=== PATIENT | female | born 1950 | race Caucasian/White ===

== ENCOUNTER → 2016-08-17 | Outpatient (CLI) | payer MEDICARE | END | disposition home or self-care (01) | LOC: GMAL 15:35 | PROVIDERS: ATTEND Family Medicine | DX: D51.3 Other dietary vitamin B12 deficiency anemia (principal); E55.9 Vitamin D deficiency, unspecified ==

== ENCOUNTER → 2017-02-12 | Outpatient (CLI) | payer MEDICARE | END | disposition home or self-care (01) | LOC: GMAL 10:49 | PROVIDERS: ATTEND Family Medicine | DX: E55.9 Vitamin D deficiency, unspecified (principal) ==

== ENCOUNTER → 2017-02-27 | Outpatient (CLI) | payer MEDICARE | END | disposition home or self-care (01) | LOC: GMAL 16:37 | PROVIDERS: ATTEND Family Medicine | DX: N30.00 Acute cystitis without hematuria (principal) ==

== ENCOUNTER → 2017-05-21 | Outpatient (CLI) | payer MEDICARE ==
--- NOTE | 2017-05-22 16:19 | MAM ---
EXAM DESCRIPTION: 3D Screening BILATERAL : Digital Mammography. CLINICAL HISTORY: 66 years Female SCREENING . No complaints. No family history breast cancer.. COMPARISON: 2-D digital bilateral screening studies on 03/28/2016 and 03/02/2015. Report from prior examination also reviewed. TECHNIQUE: Bilateral CC and MLO projection full-field images, 3-D tomosynthesis digital mammographic technique. Also bilateral synthesized CC/ MLO full-field images. CAD not utilized. FINDINGS: The breast parenchymal density pattern is: Scattered areas of fibroglandular density. No skin thickening or nipple retraction bilateral solitary microcalcifications. Dense fibroglandular tissues in the anterior half of the breasts bilaterally. No focal, stellate mass or density, focal asymmetry , and no suspicious microcalcifications bilaterally. Stable mammograms compared to prior study, taking into account differences in mammographic technique IMPRESSION: BI-RADS CATEGORY: 2 - BENIGN FINDINGS. FOLLOW UP: Routine digital bilateral screening, one year interval from May 2017. Written communication explaining the IMPRESSION and follow-up, will be mailed to the patient and referring health care provider. According to the [employer], yearly mammograms are recommended starting at age 40 and continuing as long as a woman is in good health. Any breast change noted on a breast self-exam should be reported promptly to the patient's healthcare provider. Breast MRI is recommended for women with an approximately 20-25% or greater lifetime risk of breast cancer, including women with a strong family history of breast or ovarian cancer and women who have been treated for Hodgkin's disease. A negative mammographic report should not delay tissue diagnosis in patients with significant clinical history or physical findings. Extremely dense breast tissue limits the sensitivity of digital mammography. Electronically signed by: Jeet Varghese MD 05/22/2017 4:18 PM [facility]
== END | disposition home or self-care (01) ==
LOC: MAMMO 09:33
PROVIDERS: ATTEND Family Medicine
DX: Z12.31 Encounter for screening mammogram for malignant neoplasm of breast (principal)
CPT/HCPCS: 77063; G0202

== ENCOUNTER → 2017-12-24 | Outpatient (CLI) | payer MEDICARE ==
--- NOTE | 2017-12-24 11:46 | MRI ---
EXAM DESCRIPTION: Knee,Left: MRI. CLINICAL HISTORY: KNEE PAIN COMPARISON: None. TECHNIQUE: Multiplanar, high-field MRI, multiple sequences, without contrast: Left knee. FINDINGS: Abnormal signal involving the full-thickness of the posterior horn of the medial meniscus between the collateral surface in the posterior central root attachment. Mild chondromalacia in the medial compartment with no subchondral edema. Normal signal in the anterior horn and body of the meniscus. Minimal effusion medial compartment. Minimal chondromalacia in the lateral compartment, particularly lateral and anterior on the tibial plateau, and minimal effusion. Normal signal in the lateral meniscus. Minimal edema posterior soft tissues. Subcortical cystic retraction lesions on the posterior tibial spine and anterior tibial spine at the cruciate ligament insertion sites. Intra-cruciate space effusion. Cruciate ligaments are intact. Cyst superior to the posterior cruciate ligament in the posterior midline. Minimal fluid in the popliteus tendon insertion on the lateral femoral condyle. Fluid also in the fibular collateral ligament insertion on the femur. Medial collateral ligament is unremarkable. 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 Grade 3 lesion near the patellar apex. Small surface area of the medial patellar facet relative to the lateral facet , type III patella. Grade 4 osteochondrosis on the medial facet. Marginal spurs on the patella. Grade 3 osteochondrosis on the medial and lateral femoral trochlea. Also spurs on the medial and lateral trochlea. Large suprapatellar effusion. Questionable loose body in the lateral suprapatellar space but the space was not completely imaged. Lateral patellar shift. Medial and lateral patellar soft tissue restraints are unremarkable. Intermediate signal in the quadriceps and patellar tendons. Edema anterior to the patella and patellar tendon.. IMPRESSION: 1. Full-thickness tear of the posterior horn of the medial meniscus between the lateral surface and the central root attachment. Medial compartment effusion and chondromalacia. 2. Partial tendon tear popliteus at the femoral insertion. Sprain or partial tear of the fibular collateral ligament at the femoral insertion. Lateral compartment effusion. Posterior soft tissue edema. Cruciate ligaments are intact. 3. Marked chondromalacia of the lateral patellar facet more than the medial patellar facet. Type III patella with hypoplastic medial facet. Grade 4 osteochondrosis. Grade 3 osteochondrosis lateral facet at the apex. Marked lateral patellar shift. 4. Grade 3 osteochondrosis on the medial and lateral femoral trochlea with marginal spurs. Large suprapatellar effusion with possible loose body in the lateral suprapatellar space not completely imaged. Degenerative changes in the quadriceps and patellar tendons.. Electronically signed by: Jeet Varghese MD 12/24/2017 11:45 AM CDT
== END ==
LOC: MRI 10:00
PROVIDERS: ATTEND Family Medicine
DX: S83.242A Other tear of medial meniscus, current injury, left knee, initial encounter (principal); M94.262 Chondromalacia, left knee

== ENCOUNTER → 2018-03-19 | Outpatient (CLI) | payer MEDICARE | LOC: GMAL 10:47 | PROVIDERS: ATTEND Family Medicine | DX: D51.3 Other dietary vitamin B12 deficiency anemia (principal); R53.83 Other fatigue; E55.9 Vitamin D deficiency, unspecified ==

== ENCOUNTER → 2018-07-10 | Outpatient (CLI) | payer MEDICARE | LOC: GMAHI 14:26 | PROVIDERS: ATTEND Nurse Practitioner Family | DX: R12 Heartburn (principal) ==

== ENCOUNTER → 2018-07-24 | Outpatient (CLI) | payer MEDICARE ==
--- NOTE | 2018-07-25 13:10 | MAM ---
EXAM DESCRIPTION: 3D Screening BILATERAL : Digital Mammography. CLINICAL HISTORY: 67 years Female ANNUAL SCREENING . No complaints. No personal or family history of breast cancer. Childbirth. Postmenopausal 26 years. Currently on HRT. Lifetime risk of developing breast cancer (Tyrer-Cuzick model)(%): 4.0. COMPARISON: Bilateral screening digital breast tomosynthesis 05/21/2017. TECHNIQUE: Bilateral CC and MLO projection full-field images, digital tomosynthesis mammographic technique. Bilateral digital 2-D full-field MLO images. CAD not available for tomosynthesis or 2-D images. FINDINGS: The breast parenchymal density pattern is: Scattered areas of fibroglandular density. No skin thickening or nipple retraction. Bilateral solitary microcalcifications. Left axillary lymph node. No new focal, stellate mass or density, focal asymmetry , and no suspicious microcalcifications bilaterally. Stable mammograms compared to prior study. IMPRESSION: Benign exam. BIRAD CATEGORY: 2 BENIGN FINDINGS. RECOMMENDATIONS: FOLLOW UP: Routine digital bilateral mammographic screening, one year interval from July 2018. Written communication explaining the IMPRESSION and follow-up, will be mailed to the patient and referring health care provider. According to the [employer], yearly mammograms are recommended starting at age 40 and continuing as long as a woman is in good health. Any breast change noted on a breast self-exam should be reported promptly to the patient's healthcare provider. Breast MRI is recommended for women with an approximately 20-25% or greater lifetime risk of breast cancer, including women with a strong family history of breast or ovarian cancer and women who have been treated for Hodgkin's disease. A negative mammographic report should not delay tissue diagnosis in patients with significant clinical history or physical findings. Extremely dense breast tissue limits the sensitivity of digital mammography. Electronically signed by: Jeet Varghese MD 07/25/2018 1:09 PM [facility]
== END ==
LOC: MAMMO 08:51
PROVIDERS: ATTEND Obstetrics & Gynecology
DX: Z12.31 Encounter for screening mammogram for malignant neoplasm of breast (principal)

== ENCOUNTER → 2018-09-26 | Outpatient (CLI) | payer MEDICARE | LOC: GMAL 10:00 | PROVIDERS: ATTEND Family Medicine | DX: E55.9 Vitamin D deficiency, unspecified (principal) ==

== ENCOUNTER → 2019-08-07 | Outpatient (CLI) | payer MEDICARE ==
--- NOTE | 2019-08-08 16:19 | MAM ---
EXAM DESCRIPTION: 3D Screening BILATERAL : Digital Mammography. CLINICAL HISTORY: 68 years Female ANNUAL SCREENING . No complaints. No personal or family history of breast cancer. Menarche age 12. Childbirth age 15. Menopause age 40. No HRT. Lifetime risk of developing breast cancer (Tyrer-Cuzick model)(%): 3.9. COMPARISON: Bilateral screening digital breast tomosynthesis July 2018 and May 2017. TECHNIQUE: Bilateral CC and MLO projection full-field images, digital tomosynthesis mammographic technique. Bilateral digital 2-D full-field MLO images. CAD available for 2-D images. FINDINGS: The breast parenchymal density pattern is: Scattered areas of fibroglandular density. No skin thickening or nipple retraction. Bilateral solitary microcalcifications. Vascular calcifications. No new focal, stellate mass or density, focal asymmetry , and no suspicious microcalcifications bilaterally. Stable mammograms compared to prior study. IMPRESSION: Benign exam. BIRAD CATEGORY: 2 BENIGN FINDINGS. RECOMMENDATIONS: FOLLOW UP: Routine digital bilateral mammographic screening, one year interval from July 2019. Written communication explaining the IMPRESSION and follow-up, will be mailed to the patient and referring health care provider. According to the [employer], yearly mammograms are recommended starting at age 40 and continuing as long as a woman is in good health. Any breast change noted on a breast self-exam should be reported promptly to the patient's healthcare provider. Breast MRI is recommended for women with an approximately 20-25% or greater lifetime risk of breast cancer, including women with a strong family history of breast or ovarian cancer and women who have been treated for Hodgkin's disease. A negative mammographic report should not delay tissue diagnosis in patients with significant clinical history or physical findings. Extremely dense breast tissue limits the sensitivity of digital mammography. Electronically signed by: Jeet Varghese MD 08/08/2019 4:18 PM SURGERY MANAGER
== END ==
LOC: MAMMO 10:00
PROVIDERS: ATTEND Family Medicine
DX: Z12.31 Encounter for screening mammogram for malignant neoplasm of breast (principal)

== ENCOUNTER → 2019-10-27 | Outpatient (CLI) | payer MEDICARE | LOC: GMAL 16:02 | PROVIDERS: ATTEND Family Medicine | DX: R53.83 Other fatigue (principal); I10 Essential (primary) hypertension; E78.49 Other hyperlipidemia; Z83.3 Family history of diabetes mellitus ==